=== PATIENT | female | born 1990 | race African-American/Black ===

== ENCOUNTER 2021-01-22 14:07 | Emergency (ER) | payer OTHER ==
[2021-01-22 14:22] VITALS: BP 110/72; PULSE 82; TEMP 98.5; BMI 31.6
[2021-01-22] MEDS ORDERED: IBUPROFEN 600 MG TABLET (FP) PO ONE (14:59)
== END 2021-01-22 16:19 | disposition left against medical advice (07) ==
LOC: JERFT 14:07
DX: R07.89 Other chest pain (principal); M54.9 Dorsalgia, unspecified
CPT/HCPCS: 71046-TC-FY; 99284-25